=== PATIENT | female | born 1940 | race Caucasian/White ===

== ENCOUNTER → 2017-01-05 | Outpatient (CLI) | payer MEDICARE ==
[~2017-01-05] MED LIST: ASPI-110 PO; ASPI325T PO; ATOR1TAB18 PO; CHOL100025 CHEW; ENOX40P SQ; FURO20TA PO; HYDR-3516 PO; HYDR500C2 PO; K-TA10TA PO; LEVA500T33 PO; LISI-360 PO; LISI10TA3 PO; METO50TA PO; MEVA40TA PO; MISC-163; MISC-274; POTA-243 PO; PYRI200T4 PO; [UNRECOGNIZED DRUG - CODE] PO
[2017-01-05 08:49] LABS: AUTOMATED NEUTROPHIL # 6.9 TH/MM3 (1.8-7.7); BASOPHIL % 0.5 % (0.0-2.0); EOSINOPHIL # 0.2 TH/MM3 (0-0.4); EOSINOPHIL % 2.3 % (0.0-4.0); HEMATOCRIT 39.2 % (35.0-46.0); HEMO FLAGS DIFF FINAL; LYMPH % 14.7 % (9.0-44.0); LYMPHOCYTE # 1.4 TH/MM3 (1.0-4.8); MEAN CELL VOLUME 106.3 FL (80.0-100.0); MEAN CORPUSCULAR HEMOGLOBIN 36.4 PG (27.0-34.0); MEAN CORPUSCULAR HGB CONC 34.2 % (32.0-36.0); MONO % 7.3 % (0.0-8.0); NEUT % 75.2 % (16.0-70.0); PLATELET COUNT 353 TH/MM3 (150-450); RED BLOOD COUNT 3.68 MIL/MM3 (4.00-5.30); RED CELL DISTRIBUTION WIDTH 13.8 % (11.6-17.2); WHITE BLOOD COUNT 9.2 TH/MM3 (4.0-11.0)
[2017-01-05 09:07] LABS: APTT (PATIENT) 26.4 SEC (24.3-30.1); PROTHROMBIN TIME - PATIENT 10.7 SEC (9.8-11.6)
[2017-01-05 09:09] LABS: BLOOD, URINE NEG (NEG); COMMENT (UR) CULT NOT INDICATED; CULTURE IF INDICATED CULT NOT INDICATED; GLUCOSE,URINE NEG (NEG); KETONE, URINE NEG (NEG); MUCUS URINE FEW /lpf (OCC); NITRITE,URINE NEG (NEG); URINE COLOR COLORLESS (YELLW/STRAW)
--- NOTE | 2017-01-05 09:14 | RADRPT ---
EXAM DATE/TIME: 01/05/2017 09:08 [facility] COMPARISON: No previous studies available for comparison. INDICATIONS : Evaluate for pneumonia, pneumothorax or communicable disease. Pre op left hip replacement. MEDICAL HISTORY : None. SURGICAL HISTORY : cardiac stent ENCOUNTER: Initial ACUITY: 1 day PAIN SCORE: 0/10 LOCATION: Bilateral chest FINDINGS: PA and lateral views of the chest demonstrate the lungs to be symmetrically aerated without evidence of mass, infiltrate or effusion. The cardiomediastinal contours are unremarkable. Osseous structure s are intact. CONCLUSION: Normal examination. Ismael Espinal MD on January 05, 2017 at 9:12 Board Certified Radiologist. This report was verified electronically.
[2017-01-05 09:27] LABS: ALKALINE PHOSPHATASE 83 U/L (45-117); ALT (GPT) 30 U/L (10-53); ANION GAP 8 MEQ/L (5-15); AST (GOT) 21 U/L (15-37); BICARBONATE 30.5 MEQ/L (21.0-32.0); BLOOD UREA NITROGEN 27 MG/DL (7-18); CHLORIDE 101 MEQ/L (98-107); GLOMERULAR FILTRATION RATE 63 ML/MIN (>89); GLUCOSE,FASTING 84 MG/DL (74-99); POTASSIUM 4.6 MEQ/L (3.5-5.1); SODIUM (NA) 139 MEQ/L (136-145); TOTAL BILIRUBIN ADULT 0.7 MG/DL (0.2-1.0)
--- NOTE | 2017-01-05 14:05 | EKG ---
Date Performed: 01/05/2017 Time Performed: 08:29:46 PTAGE: 76 years EKG: SINUS BRADYCARDIA RIGHT BUNDLE BRANCH BLOCK SEPTAL MYOCARDIAL INFARCTION, OF INDETERMINATE AGE Brugada pattern in leads V1 and V2 Since the prior tracing, there has been an improvement in the non-specific inferolateral ST segment changes. But otherwise, no signficiant serial change. ABNORMAL ECG NO PREVIOUS TRACING DOCTOR: Patty Hoff Interpretating Date/Time 01/05/2017 14:03:24
--- NOTE | 2017-01-13 16:03 | MH ---
cc: PABLO HSIEH MD, BOON Y. M.D. DATE OF ADMISSION: 01/05/2017 DATE OF : 1940 ADMITTING DIAGNOSIS: End-stage osteoarthritis left hip ADDITIONAL DIAGNOSIS 1. Osteoarthritis right hip. 2. lumbar spondylosis without myelopathy 3. Tremors 4. myeloproliferative disorder 5. coronary artery disease PRESENT HISTORY: The patient saw me in September of this year complaining of increasing pain in the left groin and left hip, particularly on activity and her inability to walk much and taking tramadol for pain. We followed her non operatively. When seen on January 01, 2017 she came with worsening pain left hip, as severe limp and using a cane. She said she had trouble getting in and out of car and getting in and out of bed. She is taking [id number] medications for pain other than tramadol, but did not want anything stronger. Her x-rays show [id number] with sclerosis spurring and cystic changes. She is not desirous of steroid injections because of the temporary nature of it. The patient now being brought in for total hip replacement arthroplasty left hip. The diagnosis, treatment, prognosis, alternatives of treatment and potential risks, hazards and complications expected results of all been discussed with her. We have particularly talked about risks of dislocation, fracture, thromboembolic phenomenon, infection and risks of anesthesia. We obtained cardiac clearance. Also talked to her mill tender second operator who has cleared her. Informed consent obtained. No guarantees made. PHYSICAL EXAMINATION: IN GENERAL: Reveals a 76-year-old white female who limps on her left leg. She is obviously positive Trendelenburg test. She has a hard time walking without a cane and heart time getting on and off examining table. When she lies down on the exam table. She has a heart time straightening the left hip. She has significant restriction in range of motion left hip with pain. She has palpable pedal pulses in the left foot and she moves her toes well. HEAD, EYES, EARS, NOSE, AND THROAT: Head, catheter pupils react to light. HEART: Regular rhythm. No murmurs. LUNGS: The lungs clear to auscultation. ABDOMEN: Soft and supple. I have spoken to Dr. Beck Soto, her mill tender second operator and he treats her for thrombocythemia with the hydroxyurea. Her platelets on preop for evaluation is 353,000 and he feels that there should be no problem with it. The patient also been cleared by Dr. Hsieh butting saw operator. MD SANDRA Nichols/kodi /3:31 PM /3:58 PM
== END ==
LOC: CPRE 07:53
PROVIDERS: ATTEND Orthopaedic Surgery
DX: Z01.810 Encounter for preprocedural cardiovascular examination (principal); Z01.811 Encounter for preprocedural respiratory examination; Z01.812 Encounter for preprocedural laboratory examination; M16.12 Unilateral primary osteoarthritis, left hip; R00.1 Bradycardia, unspecified; I45.10 Unspecified right bundle-branch block; I21.3 ST elevation (STEMI) myocardial infarction of unspecified site; R94.31 Abnormal electrocardiogram [ECG] [EKG]
CPT/HCPCS: 36415; 71020; 80053; 81001; 85025; 85610; 85730; 93005

== ENCOUNTER 2017-01-14 05:13 | Inpatient (IN) | payer MEDICARE ==
[~2017-01-14] VITALS: Ht 162.6 cm; Wt 79.9 kg
[~2017-01-14 05:13] MED LIST changes: -ASPI-110 PO; -CHOL100025 CHEW; -ENOX40P SQ; -HYDR-3516 PO; -LEVA500T33 PO; -LISI-360 PO; -METO50TA PO; -MEVA40TA PO; -MISC-163; -MISC-274; -POTA-243 PO; -PYRI200T4 PO; -[UNRECOGNIZED DRUG - CODE] PO
[2017-01-14] MEDS ORDERED: CHLORHEXIDINE GLUCONATE 2 % 1 PACK (2 CLOTHS) TOPICAL PRN (05:45)
[2017-01-14] MEDS ORDERED: LACTATED RINGER'S 1000 ML IV PRN (05:45)
[2017-01-14] MEDS ORDERED: METOPROLOL TARTRATE 25 MG TAB PO PRN (05:45)
[2017-01-14] MEDS ORDERED: ceFAZolin 2 GM PREMIX 50 ML IV SCH (05:45)
[2017-01-14] MEDS ORDERED: VANCOMYCIN 1000 MG/NS 250 ML (for <70 kg) IV SCH ×2 (05:45)
[2017-01-14] MEDS ORDERED: SODIUM CHLORID 0.9% 500 ML IV PRN (05:45)
[2017-01-14] MEDS ORDERED: INSULIN HUMAN REGULAR 1,000 UNITS/10 ML VIAL SQ PRN (05:45)
[2017-01-14] MEDS ORDERED: POVIDONE IODINE 5% (ANTISEPSIS KIT) 4 APPLICATIONS EACH NARE PRN (05:45)
[2017-01-14] MEDS ORDERED: CHOL100025 CHEW (06:20)
[2017-01-14 06:21] VITALS: BP 127/63; PULSE 58; RESP 16; TEMP 99.1; O2SAT 97
[2017-01-14] MEDS ORDERED: MIDAZOLAM HCL 2 MG/2 ML VIAL ONE (07:21)
[2017-01-14] MEDS ORDERED: ACETAMINOPHEN 1000 MG/100 ML VIAL IV ONE (07:21)
[2017-01-14] MEDS ORDERED: EXPAREL PERI-ARTICULAR INJECTION (TOTAL VOL. 60 ML) P-ARTICULR SCH ×2 (07:30)
[2017-01-14] MEDS ORDERED: TRANEXAMIC ACID INJ 780 MG in SODIUM CHLORIDE 0.9% INJ 100 ML IV SCH ×2 (07:30→13:30)
[2017-01-14] MEDS ORDERED: GENTAMICIN SULFATE 80 MG/2 ML VIAL IRRIGATION ONE (08:07)
[2017-01-14] MEDS ORDERED: DEXT 5%-NACL 0.9% 1000 ML INJ 1,000 ML IV SCH (10:01)
[2017-01-14] MEDS ORDERED: ENOX40P SQ (10:14)
[2017-01-14] MEDS ORDERED: HYDR-3516 PO (10:14)
[2017-01-14] MEDS ORDERED: SODIUM CHLORIDE 0.9% FLUSH 5 ML FLUSH IVF PRN (10:15)
[2017-01-14] MEDS ORDERED: Post-op Orders (for Pharmacy) MISC XX ONE (10:15)
[2017-01-14] MEDS ORDERED: NALOXONE HCL 0.4 MG/ML AMP IV PRN (10:15)
[2017-01-14] MEDS ORDERED: diphenhydrAMINE HCL 50 MG/ML VIAL IV PRN (10:15)
[2017-01-14] MEDS ORDERED: ACETAMINOPHEN/HYDROcodone 325 MG/5 MG TAB PO PRN (10:15)
[2017-01-14] MEDS ORDERED: TRANEXAMIC ACID INJ 0 MG in SODIUM CHLORIDE 0.9% INJ 100 ML IV SCH (10:15)
--- NOTE | 2017-01-14 10:16 | HHI.FF ---
Face to Face Verification Diagnosis: (1) S/P total hip arthroplasty Physical Therapy Gait training Hip: Total hip, Protocol: Left, Posterior hip precautions Left LE Weight Bearing: WB as tolerated Nursing Nursing: Scot teaching, Dressing changes Dressing Changes: Daily dressing change, Coverderm/Primapore I have seen patient Felecia Schaffer on 01/14/17. My clinical findings support the need for the requested home health care services because: Limited ability to care for self Injectable med education/admin I certify that my clinical findings support that this patient is homebound because: Unsafe to leave home unassisted Unable to use public transportation Denny Guerrero MD Jan 14, 2017 10:16
[2017-01-14] MEDS ORDERED: MISC-274 (10:18)
[2017-01-14] MEDS ORDERED: MISC-163 (10:18)
[2017-01-14] MEDS ORDERED: DO NOT ADM ANY ANTICOAGULANT DRUGS PRN (10:21)
[2017-01-14] MEDS ORDERED: *morphine SULFATE 8 MG/ML PERIprocedure ONLY ONE (10:22)
[2017-01-14] MEDS ORDERED: fentaNYL CITRATE 250 MCG/5 ML AMP ONE (10:22)
[2017-01-14] MEDS ORDERED: KETOROLAC TROMETHAMINE 30 MG/ML (IVP) VIAL ONE (10:44)
--- NOTE | 2017-01-14 11:06 | RADRPT ---
EXAM DATE/TIME: 01/14/2017 11:41 [facility] COMPARISON: No previous studies available for comparison. INDICATIONS : Post op left hip. MEDICAL HISTORY : None. SURGICAL HISTORY : None. ENCOUNTER: Initial ACUITY: 1 day PAIN SCORE: Non-responsive. LOCATION: Left hip FINDINGS: The patient is status post a total hip arthroplasty with a bipolar prosthesis. Prosthesis is well-sea byron. Alignment is anatomic. A fracture is not appreciated. CONCLUSION: Anatomic alignment. Pramod Wild MD FACR Board Certified Radiologist. This report was verified electronically.
[2017-01-14] MEDS ORDERED: KETOROLAC TROMETHAMINE 30 MG/ML (IVP) VIAL IVP SCH (11:30)
[2017-01-14] MEDS ORDERED: NEOSTIGMINE 3 MG/3 ML SYR IV ONE (12:00)
[2017-01-14] MEDS ORDERED: PROPOFOL 200 MG/20 ML AMP IV ONE (12:00)
[2017-01-14] MEDS ORDERED: ONDANSETRON HCL 4 MG/2 ML VIAL IV PUSH ONE (12:00)
[2017-01-14] MEDS ORDERED: ePHEDrine/NS 25 MG/5 ML SYR IV ONE (12:00)
[2017-01-14] MEDS ORDERED: LACTATED RINGER'S 1000 ML INJ 1,000 ML IV ONE (12:00)
[2017-01-14] MEDS ORDERED: PHENYLEPH/NS 1000 MCG/10 ML SYR IV ONE (12:00)
[2017-01-14] MEDS: MORPHINE SULFATE 30 MG/30 ML PCA IV SCH ×2 (12:52→23:18)
[2017-01-14 13:51] VITALS: BP 109/54; PULSE 74; RESP 18; TEMP 96; O2SAT 97
[2017-01-14] MEDS: PCA - TOTAL MG MORPHINE DELIVERED PER SHIFT SCH ×2 (14:00→22:00)
[2017-01-14] MEDS: ceFAZolin 2 GM PREMIX 50 ML IV SCH ×2 (14:00→20:37)
[2017-01-14] MEDS: ONDANSETRON HCL 4 MG/2 ML VIAL IVP PRN ×2 (14:25→21:42)
--- NOTE | 2017-01-14 15:41 | PD.CONS ---
HPI Service [facility] Hospitalists Consult Requested By Dr. Guerrero Reason for Consult Medical management Primary Care Physician Silverio Holland MD Diagnoses: History of Present Illness Mrs. Schaffer is a pleasant 76 y/o WF with HTN, hx of CAD/MO in 2010 s/p PTCA, hyperlipidemia, chronic myeloproliferative disorder followed by Dr. Soto and osteoarthritis who was admitted to [facility] on 01/14/17 for a left total hip arthroplasty with Dr. Guerrero. [facility] Hospitalist team was consulted to help with managing the pts chronic medical issues. Pt is seem post-operatively on 6N in the presence of several family members. Pt has been experiencing some nausea post-operatively. She denies any abdominal pain, chest pain, SOB or palpitations. Her pain is currently well controlled. Mccarthy catheter is in place. She is sitting up in the chair at the time of examination. Vital signs are stable. Review of Systems Constitutional: DENIES: Fever, Chills, Dizziness Eyes: DENIES: Blurred vision Ears, nose, mouth, throat: DENIES: Hearing loss Respiratory: DENIES: Cough, Shortness of breath Cardiovascular: DENIES: Chest pain, Palpitations, Lower Extremity Edema Gastrointestinal: COMPLAINS OF: Nausea, Vomiting, DENIES: Abdominal pain, Diarrhea Genitourinary: DENIES: Urgency, Hematuria Musculoskeletal: COMPLAINS OF: Joint pain, DENIES: Back pain, Neck pain Integumentary: DENIES: Rash Neurologic: DENIES: Headache Psychiatric: DENIES: Confusion Past Family Social History Past Medical History Hypertension Hyperlipidemia CAD with hx of anterior MO s/p PTCA with stent in 2010 Hx of ventricular fibrillation in 2010 when he had his MO Hx of CHF, she had acute CHF with pulmonary edema and pleural effusion in the setting of acute anterior MO in Oct 2010, previous myocardial perfusion scan on 03-04-16 was normal with an EF of 78%. Mitral regurgitation Hx of colon polyps Osteoarthritis Essential tremor Chronic myeloproliferative disorder/Chronic leukocytosis/Thrombocytosis, follows with Dr. Soto Renal cyst CKD/Hypertensive CKD: Her GFR was 58 on 01/13/17 Past Surgical History [facility] in 2010 s/p PTCA with stenting to the LAD JESSICA in 1977 Reported Medications -K-Tab 10 Meq PO DAILY -Atorvastatin 80 Mg PO HS -Lisinopril 20 Mg PO DAILY --Aspirin 81 Mg PO DAILY --Vitamin D3 2,000 Units CHEW DAILY -Hydroxyurea 500 Mg PO DAILY on Iep-Ohn-Pcl-Thu-Thu Allergies: Coded Allergies: No Known Allergies (Verified , 01/14/17) Family History Noncontributory Social History Denies any alcohol, tobacco or illicit drug use Physical Exam Vital Signs Vital Signs Date Time Temp Pulse Resp B/P Pulse Ox O2 Delivery O2 Flow Rate FiO2 01/14/17 12:52 16 01/14/17 12:00 67 16 122/54 97 Nasal Cannula 4 01/14/17 11:00 70 16 125/54 94 Nasal Cannula 4 01/14/17 10:45 69 16 144/81 97 Nasal Cannula 4 01/14/17 10:30 79 16 141/80 96 Nasal Cannula 4 01/14/17 10:15 97.4 92 16 145/77 96 Nasal Cannula 4 01/14/17 06:21 99.1 58 16 127/63 97 Physical Exam GENERAL: This is a well-nourished, well-developed patient, in no apparent distress. HEENT: Atraumatic. Normocephalic. No temporal or scalp tenderness. No scleral icterus. Airway patent. NECK: Trachea midline, supple, nontender. CARDIO: Regular. RESP: CTA bilaterally. No wheezes, rales, or rhonchi. ABD:+BS, soft, non-tender, nondistended. EXT: Extremities without clubbing, cyanosis, or edema. NEURO: Awake and alert. Motor and sensory grossly within normal limits. Normal speech. Laboratory Laboratory Tests Test 01/14/17 06:25 Blood Type O POSITIVE Antibody Screen NEGATIVE Blood Bank Comment Imaging Last Impressions Hip X-Ray 01/14/17 0000 Signed Impressions: Service Date/Time: Saturday, January 14, 2017 11:41 - CONCLUSION: Anatomic alignment. Pramod Wild MD Assessment and Plan Problem List: (1) S/P total hip arthroplasty Status: Acute Plan: - Pt s/p left total hip arthroplasty on 01/14/[address] Guerrero - Post-op pain control per Ortho - Constipation precautions - IS - PT daily - DVT prophylaxis - Pt is planning for HHC/PT at the time of discharge (2) Osteoarthritis Status: Chronic Plan: - See above. (3) HTN (hypertension) Status: Chronic Plan: - Cont. home medications, Lisinopril 20mg po daily - Monitor vitals (4) Hyperlipidemia Status: Chronic Plan: - Home meds continued (5) Chronic myeloproliferative disorder Status: Chronic Plan: - Pt follows with Dr. Soto - Home meds continued, Hydrea 500mg Assessment and Plan Patient examined. Assessment and plan formulated with Sana Leonardo PA-C. I agree with the above. s/p L ramone today mpd, cad, htn. home meds resumed dvt prophylaxis. IS. lianne mccarthy in AM hhc/pt planned. Problem Qualifiers (1) S/P total hip arthroplasty: Qualified Code: Z96.642 - Status post total replacement of left hip (2) Osteoarthritis: Qualified Code: M16.12 - Primary osteoarthritis of left hip Sana Leonardo Jan 14, 2017 15:41 Pato Torres MD Jan 14, 2017 17:51
[2017-01-14] MEDS ORDERED: BISACODYL 10 MG SUPP RECTAL PRN (16:15)
[2017-01-14] MEDS: KETOROLAC TROMETHAMINE 30 MG/ML (IVP) VIAL IVP SCH (17:35)
[2017-01-14] MEDS ORDERED: VANCOMYCIN INJ 1,000 MG in SODIUM CHLOR 0.9% 250 ML INJ 250 ML IV SCH (20:00)
[2017-01-14 20:11] VITALS: O2SAT 93
[2017-01-14 20:25] VITALS: BP 110/56; PULSE 70; RESP 17; TEMP 96; O2SAT 100
[2017-01-14] MEDS: ACETAMINOPHEN 1000 MG/100 ML VIAL IV SCH (20:37)
[2017-01-14] MEDS: SODIUM CHLORIDE 0.9% FLUSH 5 ML FLUSH IVF SCH (20:38)
[2017-01-14] MEDS: ATORVASTATIN 80 MG TAB PO SCH (20:38)
[2017-01-14] MEDS: POVIDONE IODINE 7.5% SCRUB 118 ML BOTTLE TOPICAL SCH (20:39)
[2017-01-14] MEDS ORDERED: TEMAZEPAM 15 MG CAP PO PRN (21:00)
[2017-01-15 00:15] VITALS: BP 103/55; PULSE 60; RESP 17; TEMP 96.7; O2SAT 100
[2017-01-15] MEDS: KETOROLAC TROMETHAMINE 30 MG/ML (IVP) VIAL IVP SCH ×3 (02:13→18:14)
[2017-01-15] MEDS: ceFAZolin 2 GM PREMIX 50 ML IV SCH (02:13)
[2017-01-15 04:20] VITALS: BP 91/40; PULSE 59; RESP 17; TEMP 97.6; O2SAT 99
[2017-01-15] MEDS: PCA - TOTAL MG MORPHINE DELIVERED PER SHIFT SCH (06:00)
[2017-01-15 06:17] LABS: AUTOMATED NEUTROPHIL # 7.9 TH/MM3 (1.8-7.7); BASOPHIL % 0.2 % (0.0-2.0); EOSINOPHIL % 0.4 % (0.0-4.0); HEMATOCRIT 28.6 % (35.0-46.0); HEMO FLAGS DIFF FINAL; LYMPH % 6.4 % (9.0-44.0); LYMPHOCYTE # 0.6 TH/MM3 (1.0-4.8); MEAN CELL VOLUME 107.6 FL (80.0-100.0); MEAN CORPUSCULAR HEMOGLOBIN 36.7 PG (27.0-34.0); MEAN CORPUSCULAR HGB CONC 34.1 % (32.0-36.0); MONO % 7.1 % (0.0-8.0); NEUT % 85.9 % (16.0-70.0); PLATELET COUNT 226 TH/MM3 (150-450); RED BLOOD COUNT 2.65 MIL/MM3 (4.00-5.30); RED CELL DISTRIBUTION WIDTH 12.8 % (11.6-17.2); WHITE BLOOD COUNT 9.2 TH/MM3 (4.0-11.0)
[2017-01-15 06:39] LABS: BICARBONATE 28.2 MEQ/L (21.0-32.0); MAGNESIUM 2.2 MG/DL (1.5-2.5); POTASSIUM 4.4 MEQ/L (3.5-5.1)
--- NOTE | 2017-01-15 07:35 | PD.ORT.PN ---
Subjective Post Op Day #: 1 Subjective Remarks doing well, looking forward to PT comfortable Objective Vitals Vital Signs Date Time Temp Pulse Resp B/P Pulse Ox O2 Delivery O2 Flow Rate FiO2 01/15/17 06:00 17 01/15/17 04:20 97.6 59 17 91/40 99 01/15/17 00:15 96.7 60 17 103/55 100 01/14/17 23:18 17 01/14/17 22:00 18 01/14/17 20:25 96.0 70 17 110/56 100 01/14/17 20:11 93 Nasal Cannula 3.00 01/14/17 14:00 18 01/14/17 13:51 96.0 74 18 109/54 97 01/14/17 12:52 16 01/14/17 12:00 67 16 122/54 97 Nasal Cannula 4 01/14/17 11:00 70 16 125/54 94 Nasal Cannula 4 01/14/17 10:45 69 16 144/81 97 Nasal Cannula 4 01/14/17 10:30 79 16 141/80 96 Nasal Cannula 4 01/14/17 10:15 97.4 92 16 145/77 96 Nasal Cannula 4 I/O 01/14/17 01/14/17 01/14/17 01/15/17 01/15/17 01/15/17 07:00 15:00 23:00 07:00 15:00 23:00 Intake Total 2342 ml 616 ml 240 ml Output Total 600 ml 400 ml 150 ml Balance 1742 ml 216 ml 90 ml Intake Oral 100 ml 240 ml 240 ml IV Total 1042 ml 376 ml Other 1200 ml Output Urine Total 150 ml 400 ml 150 ml Estimated Blood Loss 300 ml Other 150 ml # Bowel Movements 0 Result Diagram: 01/15/17 0540 01/15/17 0540 Imaging Last 72 hours Impressions Hip X-Ray 01/14/17 0000 Signed Impressions: Service Date/Time: Saturday, January 14, 2017 11:41 - CONCLUSION: Anatomic alignment. Pramod Wild MD Objective Remarks A,A,And O. Son in law at bedside Moves warm toes well. Dressings dry. In bed with abdn pillow Assessment & Plan Ortho Post Op Day #: 1 Problem List: Assessment and Plan Post op Left LUBNA Doing well Routine post op LUBNA protocol DC home with C on Sat Denny Guerrero MD Jan 15, 2017 07:35
[2017-01-15 08:12] VITALS: BP 121/50; PULSE 65; RESP 16; TEMP 97.4; O2SAT 100
[2017-01-15] MEDS ORDERED: LISINOPRIL 10 MG TAB PO SCH (09:00)
[2017-01-15] MEDS: SODIUM CHLORIDE 0.9% FLUSH 5 ML FLUSH IVF SCH ×2 (09:00→21:00)
[2017-01-15] MEDS: ENOXAPARIN SODIUM 40 MG/0.4 ML SYRINGE SQ SCH (09:40)
[2017-01-15] MEDS: CHOLECALCIFEROL (VIT D3) 1000 UNIT TAB PO SCH (09:40)
[2017-01-15] MEDS: ASPIRIN 325 MG TAB PO SCH (09:40)
[2017-01-15] MEDS: POTASSIUM CHLORIDE 10 MEQ CONTROLLED RELEASE TAB PO SCH (09:40)
[2017-01-15] MEDS: ACETAMINOPHEN/HYDROcodone 325 MG/5 MG TAB PO PRN (09:42)
[2017-01-15] MEDS: ACETAMINOPHEN 1000 MG/100 ML VIAL IV SCH ×2 (09:42→21:29)
[2017-01-15] MEDS: HYDROXYUREA 500 MG CAP PO SCH (09:54)
[2017-01-15] MEDS: ONDANSETRON HCL 4 MG/2 ML VIAL IVP PRN (11:28)
[2017-01-15 11:45] VITALS: BP 108/60; PULSE 69; RESP 16; TEMP 98.5; O2SAT 97
[2017-01-15 13:07] VITALS: O2SAT 96
--- NOTE | 2017-01-15 16:03 | MP ---
cc: SHAKILA GUERRERO DATE OF SURGERY: 01/14/2017. PREOPERATIVE DIAGNOSIS: Osteoarthritis left hip. POSTOPERATIVE DIAGNOSIS: 1. Osteoarthritis left hip. 2. Moderate obesity. OPERATION: Total hip replacement arthroplasty left hip using uncemented components: Cup - Soumya 52-mm with a single dome screw. Liner - 36 mm high wall. Stem - Biomet Taperloc 11 mm standard offset. Head - Ceramic 36 mm, -3 neck length. SURGEON: Shakila Guerrero MD. ANESTHESIA: General. DESCRIPTION OF THE PROCEDURE IN DETAIL: After induction of general anesthesia the patient was placed in the left lateral position supported with Biomet hip positioners. Strict lateral position was ascertained. Left hip and lower extremity were thoroughly prepped with alcohol and ChloraPrep and draped in a routine fashion. A standard lateral incision was made and centered on the greater trochanter, deepened through subcutaneous tissue. The subcutaneous tissue subcutaneous tissue was quite substantial, at least about 7.5 cm deep. Fascia was incised in line of the skin incision. Self-retaining retractors were introduced after dissecting the trochanteric bursa. Gluteus medius was retracted anteriorly and the short external rotators were identified, tagged and cut with the capsule being cut in an inverted L-shaped fashion with the vertical limb of the L along the intertrochanteric line. These were tied with #2 Vicryl. Gluteus medius reflected from the acetabulum and a Steinmann pin placed vertically into the bone, perpendicular to the floor of the operating table and bent at 90 degrees to measure length and offset. The hip was then dislocated. Femoral neck osteotomy was carried out about 10-15 mm proximal to the lesser trochanter. The acetabulum was then exposed, cleaned of soft tissue and with good exposure, the bony confines rechecked followed by reaming starting with a 44 mm reamer ending with a 51 mm reamer and then impacting a 52 mm Soumya cup in 45 degrees of abduction and 20 degrees of anteversion. A single dome screw was placed 30 mm long. A 36-mm polyethylene high wall liner was impacted in place. The femur now was prepared using standard technique of using a cookie cutter followed by canal finder and broaches to an 11 mm broach. The trial reduction was carried out with a -6 head and everything looked good. We had gained about 2 mm in length and lost about 9 mm of offset. It was decided to therefore use a somewhat longer neck depending on how the stem went in. The hip was dislocated. Trial implants were removed and the 11 mm taper lock stem impacted in place in about 15 degrees of anteversion. A -3 / 36 mm ceramic head was placed on it and gently impacted on the Pham taper followed by final reduction. There was good position, alignment and stability. We gained about 4 mm in length and lost about 7 mm of offset. The wound was irrigated with saline solution followed by reattachment of the capsule and short rotators to the posterior margin of the greater trochanter with #2 FiberWire. The fascia was closed with #2 quill, subcutaneous tissue with a Rapide Vicryl and skin with subcuticular quill and Steri-Strips. Dressing was applied with Xeroform, 4x4s, ABD and Medipore tape. The patient was transferred to the recovery room in satisfactory condition with an abduction pillow. The patient tolerated the procedure well TRANSFUSIONS: None. COMPLICATIONS: None. POSTOPERATIVE CONDITION: Satisfactory. PROGNOSIS: Good. ESTIMATED BLOOD LOSS: 350 to 400 mL. MD SANDRA Nichols/IRA /10:25 AM /3:48 PM
[2017-01-15 20:25] VITALS: BP 106/55; PULSE 63; RESP 17; TEMP 98; O2SAT 97
[2017-01-15] MEDS: MAGNESIUM HYDROXIDE SUSP 30 ML CUP PO PRN (21:28)
[2017-01-15] MEDS: ATORVASTATIN 80 MG TAB PO SCH (21:29)
[2017-01-15] MEDS: DOCUSATE SODIUM 100 MG CAP PO SCH (21:29)
[2017-01-16] MEDS: ACETAMINOPHEN/HYDROcodone 325 MG/5 MG TAB PO PRN ×3 (00:16→10:38)
[2017-01-16 01:05] VITALS: BP 101/57; PULSE 69; RESP 16; TEMP 98; O2SAT 97
[2017-01-16] MEDS: KETOROLAC TROMETHAMINE 30 MG/ML (IVP) VIAL IVP SCH ×3 (01:30→17:44)
[2017-01-16] MEDS: POVIDONE IODINE 7.5% SCRUB 118 ML BOTTLE TOPICAL SCH (05:45)
[2017-01-16 08:16] VITALS: BP 86/43; PULSE 60; RESP 18; TEMP 97.4; O2SAT 98
[2017-01-16 09:05] VITALS: BP 115/45
[2017-01-16] MEDS: CHOLECALCIFEROL (VIT D3) 1000 UNIT TAB PO SCH (09:06)
[2017-01-16] MEDS: DOCUSATE SODIUM 100 MG CAP PO SCH ×2 (09:06→20:55)
[2017-01-16] MEDS: POTASSIUM CHLORIDE 10 MEQ CONTROLLED RELEASE TAB PO SCH (09:06)
[2017-01-16] MEDS: ASPIRIN 325 MG TAB PO SCH (09:07)
[2017-01-16] MEDS: ENOXAPARIN SODIUM 40 MG/0.4 ML SYRINGE SQ SCH (09:08)
[2017-01-16] MEDS: ACETAMINOPHEN 1000 MG/100 ML VIAL IV SCH ×2 (09:08→20:55)
[2017-01-16] MEDS: SODIUM CHLORIDE 0.9% FLUSH 5 ML FLUSH IVF SCH ×2 (09:09→20:56)
[2017-01-16] MEDS: HYDROXYUREA 500 MG CAP PO SCH (09:19)
--- NOTE | 2017-01-16 12:21 | PD.ORT.PN ---
Subjective Post Op Day #: 2 Pain Scale: little Subjective Remarks up and about, walking a lot. Distance Walked hallway Objective Vitals Vital Signs Date Time Temp Pulse Resp B/P Pulse Ox O2 Delivery O2 Flow Rate FiO2 01/16/17 09:05 115/45 01/16/17 08:16 97.4 60 18 86/43 98 01/16/17 01:05 98.0 69 16 101/57 97 01/15/17 20:25 98.0 63 17 106/55 97 01/15/17 13:07 96 21 I/O 01/15/17 01/15/17 01/15/17 01/16/17 01/16/17 01/16/17 07:00 15:00 23:00 07:00 15:00 23:00 Intake Total 859 ml 780 ml 240 ml 240 ml Output Total 150 ml 470 ml 400 ml Balance 709 ml 310 ml -160 ml 240 ml Intake Oral 240 ml 780 ml 240 ml 240 ml IV Total 619 ml Output Urine Total 150 ml 470 ml 400 ml # Voids 2 # Bowel Movements 0 Result Diagram: 01/15/17 0540 01/15/17 0540 Imaging Last 72 hours Impressions Hip X-Ray 01/14/17 0000 Signed Impressions: Service Date/Time: Saturday, January 14, 2017 11:41 - CONCLUSION: Anatomic alignment. Pramod Wild MD Objective Remarks dozing in chair. Dressings ,new dry. Movestoes well. Noswelling leg Assessment & Plan Ortho Post Op Day #: 2 Problem List: Assessment and Plan Post op Left LUBNA Doing well Routine post op LUBNA protocol DC home with C on Sat Denny Guerrero MD Jan 16, 2017 12:20
[2017-01-16 16:00] VITALS: BP 124/60; PULSE 69; RESP 16; TEMP 98.3; O2SAT 98
[2017-01-16 20:00] VITALS: BP 105/59; PULSE 67; RESP 20; TEMP 97; O2SAT 99
[2017-01-16] MEDS: ATORVASTATIN 80 MG TAB PO SCH (20:55)
[2017-01-17] VITALS: BP 106/55; PULSE 68; RESP 22; TEMP 96.5; O2SAT 98
[2017-01-17] MEDS: KETOROLAC TROMETHAMINE 30 MG/ML (IVP) VIAL IVP SCH (02:38)
[2017-01-17] MEDS: MAGNESIUM HYDROXIDE SUSP 30 ML CUP PO PRN (06:16)
[2017-01-17 08:00] VITALS: BP 116/53; PULSE 57; RESP 18; TEMP 96.2; O2SAT 98
[2017-01-17] MEDS: SODIUM CHLORIDE 0.9% FLUSH 5 ML FLUSH IVF SCH (09:00)
[2017-01-17] MEDS: DOCUSATE SODIUM 100 MG CAP PO SCH (09:26)
[2017-01-17] MEDS: ASPIRIN 325 MG TAB PO SCH (09:26)
[2017-01-17] MEDS: CHOLECALCIFEROL (VIT D3) 1000 UNIT TAB PO SCH (09:26)
[2017-01-17] MEDS: ENOXAPARIN SODIUM 40 MG/0.4 ML SYRINGE SQ SCH (09:26)
[2017-01-17] MEDS: POTASSIUM CHLORIDE 10 MEQ CONTROLLED RELEASE TAB PO SCH (09:26)
[2017-01-17] MEDS: ACETAMINOPHEN/HYDROcodone 325 MG/5 MG TAB PO PRN (09:27)
[2017-01-17] MEDS: HYDROXYUREA 500 MG CAP PO SCH (09:33)
[2017-01-17] MEDS ORDERED: ASPI-110 PO (10:28)
--- NOTE | 2017-01-17 10:30 | PD.ORT.PN ---
Subjective Post Op Day #: 3 Pain Scale: minimal Subjective Remarks up and about, walking a lot.Ready for DC Objective Vitals Vital Signs Date Time Temp Pulse Resp B/P Pulse Ox O2 Delivery O2 Flow Rate FiO2 01/17/17 08:00 96.2 57 18 116/53 98 01/17/17 07:05 Room Air 01/17/17 00:00 96.5 68 22 106/55 98 01/16/17 20:00 97.0 67 20 105/59 99 01/16/17 16:00 98.3 69 16 124/60 98 I/O 01/16/17 01/16/17 01/16/17 01/17/17 01/17/17 01/17/17 07:00 15:00 23:00 07:00 15:00 23:00 Intake Total 240 ml 980 ml 780 ml 240 ml Balance 240 ml 980 ml 780 ml 240 ml Intake Oral 240 ml 980 ml 780 ml 240 ml # Voids 2 6 2 1 # Bowel Movements 0 0 1 Result Diagram: 01/15/17 0540 01/15/17 0540 Imaging Last 72 hours Impressions Hip X-Ray 01/14/17 0000 Signed Impressions: Service Date/Time: Saturday, January 14, 2017 11:41 - CONCLUSION: Anatomic alignment. Pramod Wild MD Objective Remarks Up to bathroom here to take her home Dressings ,new dry. Movestoes well. Noswelling leg Assessment & Plan Ortho Post Op Day #: 3 Problem List: Assessment and Plan Post op Left LUBNA Doing well Routine post op LUBNA protocol DC home with C Discussed DC meds, FU, dislocation precautions etc. Denny Guerrero MD Jan 17, 2017 10:30
--- NOTE | 2017-01-23 11:27 | MD ---
cc: SHAKILA FLOWERS ADMISSION DATE: 01/14/2017 DISCHARGE DATE: 01/17/2017 ADMISSION DIAGNOSIS End-stage osteoarthritis left hip. Thrombocythemia (under control with medication) DISCHARGE DIAGNOSIS End-stage osteoarthritis left hip. Thrombocythemia (under control with medication) HISTORY: The history consisted of a 1-2 year history of increasing pain in the left hip, being managed nonoperatively, but now she is at a point where she is not able to ambulate without pain or able to do any activities of daily living without pain and the need to use a cane. After appropriate workup she was admitted to the hospital and underwent the surgery on the day of admission. Postoperative course is uneventful. Prophylactic anticoagulation with Lovenox 40 mg daily and aspirin 325 mg daily were used. Routine standard postop protocol for total hip used including ambulation, weightbearing as tolerated. Abduction pillow, dislocation precautions, etc. The patient now being discharged. Thereby she can ambulate to the bathroom without difficulty with a walker. Incision looks good. She is being discharged on Lovenox 40 mg daily for 12 days and aspirin 81 mg daily for the duration she is on Lovenox after which she will resume the 325 mg aspirin daily. Home health care has been arranged for wound care and physical therapy. Postoperative laboratory studies were satisfactory with a platelet under normal limits and mild variation in hemoglobin/hematocrit which is to be expected. The patient is to follow up to see me in 9 days. MD SANDRA Nichols/kodi /10:34 AM /11:12 AM
== END 2017-01-17 11:25 | disposition home health service (06) | DRG 470 ==
LOC: HSDC 05:13 → EDSTATUS 07:30 → HSDI 10:09 → N06A 13:35
PROVIDERS: ADMIT Orthopaedic Surgery; ATTEND Orthopaedic Surgery
PROC: 0SRB04A Replacement of Left Hip Joint with Ceramic on Polyethylene Synthetic Substitute, Uncemented, Open Approach (ICD-10-PCS; principal; 2017-01-14 07:25)
DX: M16.12 Unilateral primary osteoarthritis, left hip (principal); D47.1 Chronic myeloproliferative disease; I50.9 Heart failure, unspecified; E66.9 Obesity, unspecified; I25.10 Atherosclerotic heart disease of native coronary artery without angina pectoris; I12.9 Hypertensive chronic kidney disease with stage 1 through stage 4 chronic kidney disease, or unspecified chronic kidney disease; E78.5 Hyperlipidemia, unspecified; N18.2 Chronic kidney disease, stage 2 (mild); Z68.30 Body mass index [BMI] 30.0-30.9, adult; Z95.5 Presence of coronary angioplasty implant and graft; I25.2 Old myocardial infarction
CPT/HCPCS: 73502; 80048; 83735; 85025; 86850; 86900; 86901; 94150; C1776; C9290; J0131; J0690; J1580; J1650; J1885; J2250; J2270; J2370; J2405; J2710; J3010; J3370; J7042; J7050; J7120